=== PATIENT | female | born 1990 | race African-American/Black ===

== ENCOUNTER 2021-05-11 08:19 | Emergency (ER) | payer OTHER ==
[~2021-05-11] VITALS: Ht 165.1 cm; Wt 99.8 kg
[2021-05-11 08:33] VITALS: BP 135/64; TEMP 97.2
== END 2021-05-11 12:05 | disposition home or self-care (01) ==
LOC: EDSTATUS 08:19 → ED 08:19
DX: M51.36 Other intervertebral disc degeneration, lumbar region (principal); X50.9XXA Other and unspecified overexertion or strenuous movements or postures, initial encounter; Y92.89 Other specified places as the place of occurrence of the external cause
CPT/HCPCS: 81000; 81025; 96372; 99283; J1885